=== PATIENT | male | born 1985 | race Caucasian/White ===

== ENCOUNTER 2017-03-14 08:31 | Outpatient (CLI) | payer OTHER ==
[2017-03-14] MEDS ORDERED: GADOBUTROL 10 MMOL/10 ML VIAL IVP ONE (09:45)
--- NOTE | 2017-03-14 14:16 | MRI Report ---
EXAM: LEFT HAND MRI WITHOUT AND WITH CONTRAST EXAM DATE: 03/14/2017 10:07 AM. CLINICAL HISTORY: Left hand pain after fall in March 2015 COMPARISON: None. TECHNIQUE: Multiplanar, multisequence T1-weighted and fluid-sensitive sequences of the hand before an d after administration of intravenous contrast. IV contrast: 9.5 mL Gadavist. Other: None. FINDINGS: Bones: No fractures. There is mild osteophyte formation in the first metacarpal phalangeal joint and third metacarpal phalangeal joint. Minimal osteophyte formation is in the first carpal metacarpal noe nt. Cartilage: There is cartilage thinning and surface irregularity in the first carpometacarpal joint. Ligaments: The visualized collateral ligaments are intact. Tendons: The flexor and extensor tendons are unremarkable. Musculature: No edema or fatty atrophy. Other: No joint effusions or synovitis. The subcutaneous tissues are unremarkable. No abscess or cell ulitis. IMPRESSION: Early osteoarthritis of the first ray. [facility] MUSCULOSKELET[facility] RADIOLOGY SECTION Referring Provider Line: [phone] SITE ID: [id number]
== END 2017-03-14 08:32 | disposition home or self-care (01) ==
LOC: DI 08:31
PROVIDERS: ATTEND Family Medicine
DX: M19.042 Primary osteoarthritis, left hand (principal)
CPT/HCPCS: 73220; A9585